=== PATIENT | female | born 1955 | race African-American/Black ===

== ENCOUNTER 2018-02-23 17:56 | Inpatient (IN) | payer MEDICARE, OTHER ==
[~2018-02-23] VITALS: Ht 157.5 cm; Wt 92.1 kg
[~2018-02-23 17:56] MED LIST: ALBU2.5V13 NEB; ATOR10TA PO; CARB300C6 PO; CLON0.1T PO; ENAL20TA PO; GABA-531 PO; HYDR25TA PO; Metoprolol Tartrate PO; P20 PO; WARF5TAB76 PO
[2018-02-23] MEDS ORDERED: METOPROLOL TARTRATE 5MG/5ML VIAL IV ONE (19:30)
[2018-02-23] MEDS ORDERED: METOPROLOL TARTRATE 50MG TABLET PO ONE (20:00)
[2018-02-23 20:10] LABS: BASOPHILS % 0.5 % (0.0-2.0); EOSINOPHILS % 0.9 % (0.0-5.0); HEMOGLOBIN. 13.7 g/dL (12.0-16.0); LYMPHOCYTES % 27.2 % (20.0-50.0); MONOCYTES % 6.9 % (2.0-8.0); NEUTROPHILS % 64.5 % (40.0-76.0); PLATELET 382 x1000/uL (130-400); RED BLOOD CELL COUNT 4.71 mill/uL (4.2-5.4); RED CELL DISTRIBUTION WIDTH 16.5 % (11.6-14.6)
[2018-02-23 20:16] LABS: CHLORIDE 107 mEq/L (98-107)
[2018-02-23 20:21] LABS: INR 1.5; PARTIAL THROMBOPLASTIN TIME 35.4 sec (23.4-31.0); PROTHROMBIN TIME 15.8 sec (9.4-11.6)
[2018-02-23] MEDS ORDERED: POTASSIUM CHLORIDE 20MEQ TABLET SR PO ONE (20:45)
[2018-02-23] MEDS ORDERED: ENOXAPARIN 100MG/ML SYR SUBCUT ONE (20:45)
[2018-02-23] MEDS ORDERED: LORAZEPAM 1MG TABLET PO ONE (22:00)
[2018-02-23] MEDS ORDERED: ASPIRIN 81MG TABLET PO ONE (22:15)
[2018-02-23 22:50] VITALS: BP 141/102
[2018-02-23 23:08] VITALS: BP 141/102
[2018-02-24] VITALS (14 sets, daily range): BP systolic 97–165; BP diastolic 53–115
[2018-02-24] MEDS ORDERED: LIRA0.6P2 SQ (00:45)
[2018-02-24] MEDS ORDERED: ENAL20TA MT (00:56)
[2018-02-24] MEDS ORDERED: DILT180C3 MT (00:56)
[2018-02-24] MEDS ORDERED: HYDRALAZINE 20MG/ML VIAL IV PRN (01:00)
[2018-02-24] MEDS ORDERED: ACETAMINOPHEN 325MG TABLET PO PRN (01:00)
[2018-02-24] MEDS ORDERED: ACETAMINOPHEN 650MG SUPP PR PRN (01:00)
[2018-02-24] MEDS ORDERED: DOCUSATE SODIUM 100MG CAPSULE PO PRN (01:00)
[2018-02-24] MEDS ORDERED: HYDROCODONE/ACETAMINOPHEN 5/325MG TABLET PO PRN (01:00)
[2018-02-24] MEDS ORDERED: ONDANSETRON HCL 4MG/2ML VIAL IV PRN (01:00)
[2018-02-24] MEDS ORDERED: MAGNESIUM/ALUMINUM HYDROXIDE/SIMETHICONE 30ML UDC PO PRN (01:00)
[2018-02-24] MEDS ORDERED: ACETAMINOPHEN 650MG/20.3ML UDC GT PRN (01:00)
[2018-02-24] MEDS ORDERED: CLONIDINE 0.1MG TABLET PO PRN (01:00)
[2018-02-24] MEDS ORDERED: IPRATROPIUM/ALBUTEROL 0.5-3(2.5)MG/3ML NEB INH PRN (01:00)
[2018-02-24] MEDS ORDERED: NA PHOS,M-B/NA PHOS,DI-BA ENEMA 118ML PR PRN (01:00)
[2018-02-24] MEDS ORDERED: GUAIFENESIN 200MG/10ML SUGAR FREE UDC PO PRN (01:00)
[2018-02-24] MEDS ORDERED: DILTIAZEM HCL 240MG ER (24HR) PO SCH (01:40)
[2018-02-24] MEDS ORDERED: REGADENOSON 0.4 MG/5 ML IV SCH (02:00)
[2018-02-24] MEDS ORDERED: LIDOCAINE 5% PATCH TOP PRN (02:00)
[2018-02-24] MEDS: ISOSORB DINIT/HYDRALAZINE HCL 20/37.5MG TABLET PO SCH ×4 (02:36→21:25)
[2018-02-24] MEDS: SODIUM CHLORIDE 0.9% INJ 3ML FLUSH IVF SCH ×3 (06:33→21:27)
[2018-02-24] MEDS ORDERED: REGADENOSON 0.4 MG/5 ML IV ONE (08:31)
[2018-02-24] MEDS ORDERED: ENOXAPARIN 30MG/0.3ML SYR SUBCUT SCH (09:00)
[2018-02-24] MEDS ORDERED: ENOXAPARIN 40MG/0.4ML SYR SUBCUT SCH (09:00)
[2018-02-24] MEDS ORDERED: DILTIAZEM HCL 180MG CAPSULE CD 24HR PO SCH (09:15)
[2018-02-24] MEDS: GABAPENTIN 300MG CAPSULE PO SCH ×4 (09:17→17:58)
[2018-02-24] MEDS: FUROSEMIDE 40MG/4ML VIAL IVP SCH (09:55)
[2018-02-24] MEDS: POTASSIUM CHLORIDE 10MEQ TABLET SR PO SCH ×2 (09:55→17:58)
[2018-02-24] MEDS: ENALAPRIL 10MG TABLET PO SCH (10:01)
[2018-02-24 11:42] LABS: BASOPHILS % 0.4 % (0.0-2.0); EOSINOPHILS % 1.3 % (0.0-5.0); HEMATOCRIT. 39.2 % (36.0-48.0); HEMOGLOBIN. 12.8 g/dL (12.0-16.0); LYMPHOCYTES % 31.3 % (20.0-50.0); MEAN CORPUSCULAR HEMOGLOBIN 28.9 pg (28.0-32.0); MEAN CORPUSCULAR VOLUME 88.2 fL (81.0-99.0); MEAN PLATELET VOLUME 8.4 fl (7.4-10.4); MONOCYTES % 6.8 % (2.0-8.0); NEUTROPHILS % 60.2 % (40.0-76.0); PLATELET 359 x1000/uL (130-400); RED BLOOD CELL COUNT 4.44 mill/uL (4.2-5.4); RED CELL DISTRIBUTION WIDTH 16.8 % (11.6-14.6)
[2018-02-24 12:26] LABS: CREATINE KINASE MB FRACTION 1.6 ng/mL (0.5-3.6)
[2018-02-24 12:33] LABS: CHLORIDE 108 mEq/L (98-107)
[2018-02-24 12:40] LABS: LDL CHOLESTEROL 109 mg/dL (5-100)
[2018-02-24 12:41] LABS: HDL CHOLESTEROL 35 mg/dL (40-59)
[2018-02-24] MEDS: IPRATROPIUM BROMIDE (0.02%) 0.5MG/2.5ML NEB HHN SCH ×2 (13:01→21:35)
[2018-02-24 13:30] LABS: INR 1.2; PROTHROMBIN TIME 12.3 sec (9.4-11.6)
[2018-02-24] MEDS ORDERED: RIVAROXABAN 15 MG TABLET PO SCH (17:00)
[2018-02-24] MEDS ORDERED: RIVAROXABAN 20 MG TABLET PO SCH (17:00)
[2018-02-24 17:28] LABS: CLARITY URINE CLEAR (CLEAR); COLOR URINE YELLOW (YELLOW); KETONES URINE NEGATIVE (NEGATIVE); LEUKOCYTE ESTERASE URINE NEGATIVE (NEGATIVE); NITRITE URINE NEGATIVE (NEGATIVE); OCCULT BLOOD URINE NEGATIVE (NEGATIVE); PROTEIN URINE NEGATIVE (NEGATIVE); UROBILINOGEN URINE 0.2 E.U./dL (0.2-1.0)
[2018-02-24] MEDS ORDERED: ALPR1TAB2 PO (17:36)
[2018-02-24] MEDS: RIVAROXABAN 20 MG TABLET PO SCH (17:58)
[2018-02-24] MEDS: HYDROCODONE/ACETAMINOPHEN 10/325MG TABLET PO PRN (17:58)
[2018-02-24 18:02] LABS: CREATINE KINASE MB FRACTION 1.3 ng/mL (0.5-3.6)
[2018-02-24 18:02] LABS: OPIATES URINE SCREEN PRESUMTIVE POSITIVE (NEGATIVE)
[2018-02-24 18:03] LABS: CANNABINOID URINE SCREEN PRESUMTIVE POSITIVE (NEGATIVE); PHENCYCLIDINE URINE SCREEN NEGATIVE (NEGATIVE)
[2018-02-24 18:04] LABS: *AMPHETAMINES SCREEN URINE NEGATIVE (NEGATIVE); *BARBITURATES SCREEN URINE NEGATIVE (NEGATIVE); *BENZODIAZEPINES SCREEN URINE NEGATIVE (NEGATIVE); *COCAINE SCREEN URINE NEGATIVE (NEGATIVE); METHADONE URINE SCREEN NEGATIVE (NEGATIVE)
[2018-02-24] MEDS: ALPRAZOLAM 0.5 MG TABLET PO PRN (18:45)
[2018-02-24] MEDS: ATORVASTATIN CALCIUM 10MG TABLET PO SCH (21:26)
[2018-02-25] VITALS (13 sets, daily range): BP systolic 97–156; BP diastolic 29–122
[2018-02-25] MEDS: IPRATROPIUM BROMIDE (0.02%) 0.5MG/2.5ML NEB HHN SCH ×4 (02:15→20:40)
[2018-02-25] MEDS: SODIUM CHLORIDE 0.9% INJ 3ML FLUSH IVF SCH ×2 (05:27→16:04)
[2018-02-25] MEDS: ISOSORB DINIT/HYDRALAZINE HCL 20/37.5MG TABLET PO SCH ×2 (05:28→13:53)
[2018-02-25] MEDS: FUROSEMIDE 40MG/4ML VIAL IVP SCH (08:36)
[2018-02-25] MEDS: GABAPENTIN 300MG CAPSULE PO SCH ×3 (09:00→17:17)
[2018-02-25] MEDS: ENALAPRIL 10MG TABLET PO SCH ×2 (09:00→13:52)
[2018-02-25] MEDS ORDERED: CLONIDINE 0.1MG TABLET PO SCH (09:00)
[2018-02-25] MEDS: POTASSIUM CHLORIDE 10MEQ TABLET SR PO SCH ×3 (09:00→17:17)
[2018-02-25] MEDS ORDERED: MIDAZOLAM HCL 2 MG/2 ML VIAL ONE ×2 (09:05→09:18)
[2018-02-25] MEDS ORDERED: FENTANYL CITRATE/PF 50MCG/ML 2ML VIAL ONE (09:05)
[2018-02-25] MEDS ORDERED: LIDOCAINE HCL 2% JELLY 5ML ONE (09:13)
[2018-02-25] MEDS ORDERED: TETRACAINE/BENZOCAINE/BUTAMBEN 20 GM SPRAY MM ONE (09:14)
[2018-02-25 10:17] LABS: BASOPHILS % 0.4 % (0.0-2.0); EOSINOPHILS % 1.5 % (0.0-5.0); HEMATOCRIT. 41.4 % (36.0-48.0); HEMOGLOBIN. 13.7 g/dL (12.0-16.0); LYMPHOCYTES % 15.5 % (20.0-50.0); MEAN CORPUSCULAR HEMOGLOBIN 29.2 pg (28.0-32.0); MEAN CORPUSCULAR VOLUME 88.1 fL (81.0-99.0); MEAN PLATELET VOLUME 7.8 fl (7.4-10.4); NEUTROPHILS % 72.6 % (40.0-76.0); PLATELET 385 x1000/uL (130-400); RED CELL DISTRIBUTION WIDTH 16.4 % (11.6-14.6)
[2018-02-25 10:23] LABS: CHLORIDE 106 mEq/L (98-107)
[2018-02-25] MEDS: RIVAROXABAN 20 MG TABLET PO SCH (17:17)
[2018-02-25] MEDS: ATORVASTATIN CALCIUM 10MG TABLET PO SCH (21:49)
[2018-02-25] MEDS: ALPRAZOLAM 0.5 MG TABLET PO PRN (21:51)
[2018-02-25] MEDS: HYDROCODONE/ACETAMINOPHEN 10/325MG TABLET PO PRN (21:51)
[2018-02-25 22:31] LABS: BG BASE EXCESS 1.9 mmol/L (-2.0-2.0); BG CARBOXYHEMOGLOBIN 1.4 % (0.5-1.5); BG DEOXYHEMOGLOBIN 9.8 % (0.0-5.0); BG FRACTION INSPIRED OXYGEN 21; BG HCO3 ACT 25.9 mmol/L (22.0-26.0); BG METHEMOGLOBIN 0.3 % (0.0-1.5); BG OXYHEMOGLOBIN 88.5 % (94.0-97.0); BG PCO2 38.8 mmHg (35.0-45.0); BG PH 7.443 (7.350-7.450); BG PO2 60.4 mmHg (75.0-100.0); BG SAMPLE SITE LEFT RADIAL; BG TOTAL HEMOGLOBIN 13.9 g/dL (12.0-18.0); BG VENT MODE ROOM AIR
[2018-02-26] MEDS ORDERED: FURO-151 MT (12:21)
[2018-02-26] MEDS ORDERED: RIVA20TA PO (12:21)
[2018-02-26] MEDS ORDERED: ISOS1TAB PO (12:21)
== END 2018-02-25 23:30 | disposition left against medical advice (07) | DRG 308 ==
LOC: ER 19:16 → 5EST 20:14 → EDBEDREQ 20:21 → ENRESERV 21:39
PROVIDERS: ADMIT Family Medicine; ATTEND Family Medicine
PROC: B246ZZ4 Ultrasonography of Right and Left Heart, Transesophageal (ICD-10-PCS; principal; 2018-02-25)
DX: I48.0 Paroxysmal atrial fibrillation (principal); I50.21 Acute systolic (congestive) heart failure; E44.1 Mild protein-calorie malnutrition; I48.3 Typical atrial flutter; J45.909 Unspecified asthma, uncomplicated; E87.6 Hypokalemia; I11.0 Hypertensive heart disease with heart failure; E11.9 Type 2 diabetes mellitus without complications; E66.01 Morbid (severe) obesity due to excess calories; N28.9 Disorder of kidney and ureter, unspecified; E78.5 Hyperlipidemia, unspecified; F41.9 Anxiety disorder, unspecified; Z79.01 Long term (current) use of anticoagulants; Z87.442 Personal history of urinary calculi; Z87.820 Personal history of traumatic brain injury; Z87.891 Personal history of nicotine dependence; Z88.9 Allergy status to unspecified drugs, medicaments and biological substances; Z90.710 Acquired absence of both cervix and uterus; Z88.8 Allergy status to other drugs, medicaments and biological substances; Z79.899 Other long term (current) drug therapy; Z98.891 History of uterine scar from previous surgery; Z68.37 Body mass index [BMI] 37.0-37.9, adult
CPT/HCPCS: 36415; 36600; 71045; 78452; 80053; 80061; 80076; 80305; 81003; 82375; 82550; 82553; 82805; 82962; 83036; 83605; 83735; 83880; 84443; 84484; 85025; 85610; 85730; 87040; 93005; 93017; 93306; 96372; 96374; 99291; A9500; J1650; J1940; J2250; J2785; J3010; J3490

== ENCOUNTER 2018-03-12 09:41 | Emergency (ER) | payer MEDICARE, OTHER ==
[~2018-03-12] VITALS: Ht 157.5 cm; Wt 100.0 kg
[2018-03-12] MEDS ORDERED: CLONIDINE 0.2MG TABLET PO ONE (10:30)
[2018-03-12 11:31] LABS: BASOPHILS % 0.3 % (0.0-2.0); EOSINOPHILS % 0.9 % (0.0-5.0); HEMATOCRIT. 39.1 % (36.0-48.0); HEMOGLOBIN. 12.8 g/dL (12.0-16.0); LYMPHOCYTES % 14.1 % (20.0-50.0); MEAN CORPUSCULAR HEMOGLOBIN 28.5 pg (28.0-32.0); MEAN PLATELET VOLUME 7.9 fl (7.4-10.4); MONOCYTES % 5.2 % (2.0-8.0); NEUTROPHILS % 79.5 % (40.0-76.0); PLATELET 384 x1000/uL (130-400); RED BLOOD CELL COUNT 4.49 mill/uL (4.2-5.4); RED CELL DISTRIBUTION WIDTH 16.2 % (11.6-14.6)
[2018-03-12 11:41] LABS: CHLORIDE 104 mEq/L (98-107)
[2018-03-12 11:42] LABS: INR 1.1; PARTIAL THROMBOPLASTIN TIME 27.1 sec (23.4-31.0); PROTHROMBIN TIME 11.5 sec (9.4-11.6)
[2018-03-12 11:51] LABS: B-HCG QUANTITATIVE 2 mIU/mL (<3)
[2018-03-12] MEDS ORDERED: HYDROCODONE/ACETAMINOPHEN 5/325MG TABLET PO ONE (12:15)
[2018-03-12 12:20] LABS: CLARITY URINE CLOUDY (CLEAR); KETONES URINE NEGATIVE (NEGATIVE); LEUKOCYTE ESTERASE URINE 2+ (NEGATIVE); NITRITE URINE NEGATIVE (NEGATIVE); OCCULT BLOOD URINE 3+ (NEGATIVE); PROTEIN URINE 2+ (NEGATIVE); SPECIFIC GRAVITY URINE 1.015 (1.005-1.030); UROBILINOGEN URINE 0.2 E.U./dL (0.2-1.0)
[2018-03-12 12:21] LABS: COLOR URINE AMBER (YELLOW)
[2018-03-12 12:33] VITALS: BP 143/87
== END 2018-03-12 13:05 | disposition home or self-care (01) ==
LOC: ER 09:43
DX: N30.90 Cystitis, unspecified without hematuria (principal); I11.0 Hypertensive heart disease with heart failure; I50.9 Heart failure, unspecified; E11.9 Type 2 diabetes mellitus without complications; E78.00 Pure hypercholesterolemia, unspecified; Z88.6 Allergy status to analgesic agent; Z88.8 Allergy status to other drugs, medicaments and biological substances; Z79.899 Other long term (current) drug therapy; Z98.890 Other specified postprocedural states; Z90.710 Acquired absence of both cervix and uterus
CPT/HCPCS: 36415; 76830; 76856; 80053; 81003; 84702; 85025; 85610; 85730; 86850; 86900; 99285